=== PATIENT | male | born 1965 | race Caucasian/White ===

== ENCOUNTER 2018-03-17 17:28 | Emergency (ER) | payer OTHER ==
[~2018-03-17] VITALS: Ht 185.4 cm; Wt 76.2 kg
[~2018-03-17 17:28] MED LIST: ANCEF; CEPH500 PO; HYDACE5 PO; IBUHYD; SULTRIDS PO
[2018-03-17] MEDS ORDERED: PRED20 PO (19:11)
[2018-03-17] MEDS ORDERED: ALBU90OI INH (19:11)
[2018-03-17] MEDS ORDERED: PSEU120ER PO (19:11)
[2018-03-17] MEDS ORDERED: Zithromax250 MG PO (19:11)
== END 2018-03-17 19:18 | disposition home or self-care (01) ==
LOC: ER 17:28
DX: J44.1 Chronic obstructive pulmonary disease with (acute) exacerbation (principal); F17.200 Nicotine dependence, unspecified, uncomplicated
CPT/HCPCS: 71046; 94640; 99285-25

== ENCOUNTER 2020-05-27 21:05 | Emergency (ER) | payer OTHER ==
[~2020-05-27] VITALS: Ht 185.4 cm; Wt 74.4 kg
[~2020-05-27 21:05] MED LIST changes: +ALBU90OI INH; +PRED20 PO; +PSEU120ER PO; +Zithromax250 MG PO
[2020-05-27] MEDS ORDERED: TIOT18 INH (21:14)
[2020-05-27] MEDS ORDERED: FLUT.05NI (21:14)
[2020-05-27] MEDS ORDERED: NEO (21:14)
[2020-05-27] MEDS ORDERED: [UNRECOGNIZED DRUG - OTHER] (21:14)
[2020-05-27] MEDS ORDERED: POLY (21:14)
[2020-05-27] MEDS ORDERED: CEPH500 PO (22:10)
== END 2020-05-27 22:30 | disposition home or self-care (01) ==
LOC: ER 21:05
DX: L02.413 Cutaneous abscess of right upper limb (principal); L03.113 Cellulitis of right upper limb; J44.9 Chronic obstructive pulmonary disease, unspecified; F17.200 Nicotine dependence, unspecified, uncomplicated; Z79.899 Other long term (current) drug therapy
CPT/HCPCS: 99283; A9270

== ENCOUNTER 2020-06-18 13:19 | Day surgery (SDC) | payer OTHER ==
[~2020-06-18] VITALS: Ht 185.4 cm; Wt 75.7 kg
[~2020-06-18 13:19] MED LIST changes: +FLUT.05NI; +NEO; +POLY; +TIOT18 INH; +[UNRECOGNIZED DRUG - OTHER]
[2020-06-18] MEDS ORDERED: ASPI81CH PO (13:33)
== END 2020-06-18 15:17 | disposition home or self-care (01) ==
LOC: ORSCSDS 13:19
PROVIDERS: Internal Medicine Gastroenterology
PROC: 0DBN8ZX Excision of Sigmoid Colon, Via Natural or Artificial Opening Endoscopic, Diagnostic (ICD-10-PCS; principal; 2020-06-18 14:30)
DX: Z12.11 Encounter for screening for malignant neoplasm of colon (principal); Z86.010 Personal history of colon polyps; D12.5 Benign neoplasm of sigmoid colon; B19.20 Unspecified viral hepatitis C without hepatic coma; F17.210 Nicotine dependence, cigarettes, uncomplicated; Z79.899 Other long term (current) drug therapy
CPT/HCPCS: 88305; J2704; J7120

== ENCOUNTER 2021-01-29 14:09 | Emergency (ER) | payer OTHER ==
[~2021-01-29] VITALS: Ht 185.4 cm; Wt 74.8 kg
[~2021-01-29 14:09] MED LIST changes: +ASPI81CH PO
[2021-01-29 15:22] LABS: BASOPHILS ABSOLUTE AUTO 0.01 K/mm3 (0.00-0.23); BASOPHILS PERCENT AUTO 0 % (0-2); EOSINOPHILS PERCENT AUTO 0 % (0-6); Hematocrit 44.1 % (37.0-53.0); Hemoglobin 15.6 g/dL (13.5-17.5); IMMATURE GRAN ABSOLUTE AUTO 0.03 K/mm3 (0.00-0.10); IMMATURE GRAN PERCENT AUTO 1 % (0-1); LYMPHOCYTES ABSOLUTE AUTO 0.69 K/mm3 (0.84-5.20); LYMPHOCYTES PERCENT AUTO 12 % (21-46); MONOCYTES ABSOLUTE AUTO 0.33 K/mm3 (0.16-1.47); MONOCYTES PERCENT AUTO 6 % (4-13); Mean Corpuscular HGB 30.6 pg (26.0-34.0); Mean Corpuscular HGB Conc 35.4 g/dL (31.5-36.5); Mean Corpuscular Volume 87 fL (80-100); Mean Platelet Volume 10.5 fL (9.1-12.4); NEUTROPHILS ABSOLUTE AUTO 4.54 K/mm3 (1.96-9.15); NEUTROPHILS PERCENT AUTO 81 % (41-73); Platelet Count 224 K/mm3 (150-400); RDW Coefficient Variation 12.5 % (11.7-14.2); RDW Standard Deviation 39.7 fL (35.1-46.3); Red Blood Cell Count 5.09 M/mm3 (4.30-5.90)
[2021-01-29 15:33] LABS: Alanine Aminotransfer (ALT/SGP 27 U/L (12-78); Albumin/Globulin Ratio 0.7 (0.8-1.8); Alk Phos 56 U/L (50-136); Anion Gap 5 mmol/L (6-16); Aspartate Aminotrans (AST/SGOT 34 U/L (12-37); Bilirubin, Total 0.5 mg/dL (0.1-1.0); Blood Urea Nitrogen 18 mg/dL (8-24); Bun/Creatinine Ratio 21.5 (12.0-20.0); CO2, Blood 27 mmol/L (21-32); Calcium, Blood 8.6 mg/dL (8.5-10.1); Chloride, Blood 98 mmol/L (98-108); Creatinine, Blood 0.84 mg/dL (0.60-1.20); Globulin, Blood 4.3 g/dL (2.2-4.0); Glomerular Filtration Rate >60 (60-); Glucose, Blood 105 mg/dL (70-99); Potassium, Blood 4.1 mmol/L (3.5-5.5); Sodium, Blood 130 mmol/L (136-145); Total Protein, Blood 7.3 g/dL (6.4-8.2); Troponin I <0.015 ng/mL (0.000-0.040)
[2021-01-29 20:23] LABS: SARS-Cov-2 (COVID-19) PCR, MMC POSITIVE (NEGATIVE)
== END 2021-01-30 00:34 | disposition home or self-care (01) ==
LOC: ER 14:09
PROVIDERS: Emergency Medicine
DX: U07.1 COVID-19 (principal); J44.9 Chronic obstructive pulmonary disease, unspecified; E86.0 Dehydration; F17.200 Nicotine dependence, unspecified, uncomplicated
CPT/HCPCS: 36415; 71045; 80053; 83880; 84484; 85025; 93005; 93010; 94640; 99284-25; A9270; J7030; M0243; Q0243; U0004

== ENCOUNTER 2021-09-12 17:49 | Inpatient (IN) | payer OTHER ==
[~2021-09-12] VITALS: Ht 185.4 cm; Wt 68.1 kg
[2021-09-12 18:22] LABS: BASOPHILS ABSOLUTE AUTO 0.12 K/mm3 (0.00-0.23); BASOPHILS PERCENT AUTO 1 % (0-2); EOSINOPHILS PERCENT AUTO 0 % (0-6); Hematocrit 42.9 % (37.0-53.0); IMMATURE GRAN PERCENT AUTO 3 % (0-1); LYMPHOCYTES ABSOLUTE AUTO 0.54 K/mm3 (0.84-5.20); LYMPHOCYTES PERCENT AUTO 2 % (21-46); MONOCYTES ABSOLUTE AUTO 1.49 K/mm3 (0.16-1.47); MONOCYTES PERCENT AUTO 6 % (4-13); Mean Corpuscular HGB 30.2 pg (26.0-34.0); Mean Corpuscular Volume 87 fL (80-100); Mean Platelet Volume 9.5 fL (9.1-12.4); NEUTROPHILS ABSOLUTE AUTO 23.12 K/mm3 (1.96-9.15); NEUTROPHILS PERCENT AUTO 89 % (41-73); Platelet Count 488 K/mm3 (150-400); RDW Coefficient Variation 12.4 % (11.7-14.2); RDW Standard Deviation 39.5 fL (35.1-46.3); Red Blood Cell Count 4.96 M/mm3 (4.30-5.90); White Blood Cell Count 26.07 K/mm3 (4.00-11.30)
[2021-09-12 19:30] LABS: Influenza A, PCR NEGATIVE (NEGATIVE); Influenza B, PCR NEGATIVE (NEGATIVE); Resp Syncytial Virus, PCR NEGATIVE (NEGATIVE); SARS-Cov-2 (COVID-19) PCR, MMC NEGATIVE (NEGATIVE)
[2021-09-12 20:01] LABS: Albumin/Globulin Ratio 0.6 (0.8-1.8); Bun/Creatinine Ratio 23.7 (12.0-20.0); Calcium, Blood 7.9 mg/dL (8.5-10.1); Creatinine, Blood 0.89 mg/dL (0.60-1.20); Globulin, Blood 3.6 g/dL (2.2-4.0); Potassium, Blood 4.3 mmol/L (3.5-5.5); Total Protein, Blood 5.6 g/dL (6.4-8.2)
[2021-09-12] MEDS ORDERED: Advair Diskus 250-50 INH (22:52)
--- NOTE | 2021-09-12 23:00 | NUR ---
CARE ASUMPTION PT ARRIVED TO THE UNIT AND TRANSFERED HIMSELF FROM ER BED TO PCU BED. VS WNL AND AFEBRILE. TELE SHOWING ST IN THE 100'S. PT HAVING HACKING PRODUCTIVE COUGH, SPUTUM SAMPLE SENT TO LAB. PT HAD COUGHING FIT THAT CAUSED O2 SATS TO DROP INTO THE 70'S SO OXYMIZER W 15L PLACED ON AND RT CONTACTED. PT'S O2 SATS >90% ON OXYMIZER. PT IN NO DISTRESS AT THIS TIME.
--- NOTE | 2021-09-13 01:21 | NUR ---
UPDATE PT BECOMING ORE SOB W INCREASING O2 REQUIRMENTS TO MAINTAIN SATS >90%. PT CONTINUES TO HAVE TACHYPNEA W VERY PRODUCTIVE COUGH, HR IS STABLE IN THE 90'S. PROVIDER CONTACTED TO UPDATE AND NEW ORDERS GIVEN. SEE EMAR FOR DETAILS.
[2021-09-13 04:12] LABS: Hematocrit 43.4 % (37.0-53.0); Hemoglobin 14.8 g/dL (13.5-17.5); Mean Corpuscular HGB 30.2 pg (26.0-34.0); Mean Corpuscular HGB Conc 34.1 g/dL (31.5-36.5); Mean Corpuscular Volume 89 fL (80-100); Mean Platelet Volume 9.4 fL (9.1-12.4); Platelet Count 470 K/mm3 (150-400); RDW Coefficient Variation 12.5 % (11.7-14.2); RDW Standard Deviation 41.1 fL (35.1-46.3); White Blood Cell Count 24.11 K/mm3 (4.00-11.30)
[2021-09-13 04:39] LABS: Bun/Creatinine Ratio 34.4 (12.0-20.0); Calcium, Blood 8.1 mg/dL (8.5-10.1); Creatinine, Blood 0.7 mg/dL (0.60-1.20)
--- NOTE | 2021-09-13 04:47 | NUR ---
UPDATE PT TRIPODDING IN THE BED W VERY LABORED RESP ON BIPAP /6 W 70% FIO2. O2 SATS AT 92%. R/T DRAWING ABG NOW.
[2021-09-13 04:48] LABS: PCO2 Arterial 59.4 mmHg (35-45); PO2 Arterial 77.6 mmHg (80-100); pH Blood Arterial 7.18 (7.35-7.45)
[2021-09-13 06:26] LABS: Source, Urine Foley catheter
[2021-09-13 06:35] LABS: Appearance, Urine Clear (Clear); Blood, Urine 2+ (Neg); Color, Urine Yellow (P-Yellow); Glucose Qualitative, Urine Neg (Neg); Ketones, Urine 1+ (Neg); Leukocyte Esterase, Urine 1+ (Neg); Nitrite, Urine Neg (Neg); Protein, Urine 2+ (Neg); Urobilinogen, Urine 4+ (Normal)
--- NOTE | 2021-09-13 06:45 | NUR ---
0455 PT TRANSFERRED TO ICU FROM PCU FOR INCREASING DYSPNEA AND OXYGEN REQUIREMENTS, PT IS NOTED WITH MARKEDLY ELEVATED RESP RATE HIGH 30S TO 40S WITH BIPAP IN USE 12/6 FIO2 70% AND SATS 90% LUNGS DIM THROUGHOUT LEFT, COARSE THROUGHOUT RIGHT, PLAN IS FOR DR RODRIGUEZ TO ARRIVE TO BEDSIDE FOR POSSIBLE INTUBATION. PT APPEARS TO BE TIRING PER RT AND PRIMARY RN. 0510: DR RODRIGUEZ ARRIVES TO BEDSIDE 0515: PT TO BE INTUBATED, VERBAL ORDERS FOR ETOMIDATE 10 MG IV, SUCCINYLCHOLINE 100 MG, AND VERSED 2 MG IV TO HAVE AVAILABLE PRN 0517: ETOMIDATE IV ADMIN 0518: SUCCINYLCHOLINE ADMIN, BVM WITH OXYGEN BY RT 0520: ETT 8.0 [address] PL[address]ED BY DR RODRIGUEZ USING GLIDESCOPE 0523: OG PLACED, AIR AUSCULTATED OVER LUQ WITH FLUSH 0528: PROPOFOL STARTED INFUSING AT 30 MCG/KG/MIN FOR 68 KG (ADMIT WEIGHT FROM PCU) 0535: PT SITTING UP AWAY FROM BED, COUGHING AGAINST VENT, PROPOFOL INCREASED TO 50 MCG/KG/MIN 0540: X RAY FOR TUBE PLACEMENT VERIFICATION, PT TOLERATED WELL 0544: VERBAL ORDER TO ADVANCE ETT 1 CM RECEIVED. 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 0616: TEMP PROBE OROSCO PLACED USING STERILE TECHNIQUE, UA OBTAINED, PT REMAINED SEDATE THROUGH PROCEDURE 0625: RESPIRATORY RATE NOTED 35/MIN, PROPOFOL INCREASED TO 60 MCG/KG/MIN WILL MONITOR.
[2021-09-13 06:48] LABS: Bilirubin, Urine 2+ (Neg)
[2021-09-13 06:49] LABS: Bacteria Rare /hpf; Squamous Epithelial Cells Few /hpf (Few); White Blood Cells, Urine 0-2 /hpf (0-5)
[2021-09-13 06:50] LABS: Spermatozoa Few /hpf
--- NOTE | 2021-09-13 07:10 | NUR ---
Received report from Albina RUBY. Patient is intubated and sedated with 8.0 ET and 26 cm at teeth with vent settings of 22/550/100/10 and sats 94%. Patient has x2 20ga IV's in LAC and infusing Propofol at 60 mcg/kg/min and NS at 75 ml/hr x 1 more liter. He has 16Fr temp garcia draining to gravity dark maximus colored urine in scant amounts, and temp 99.0. Over all skin in good condition.He is in bilateral soft wrist restraints for line and tube protection, restraints removed and skin and circulation check and reapplied.
[2021-09-13 08:03] LABS: PO2 Arterial 87.6 mmHg (80-100)
[2021-09-13 08:05] LABS: PCO2 Arterial 77 mmHg (35-45)
--- NOTE | 2021-09-13 09:30 | NUR ---
Patients sats dropped and we were unable to get good reading and had RT do ABG. Called Dr Martell and he is on his way in. Increased vent settings to 26/550/100/10 and sats have dropped to 60s and ABG stated 91. Placed PICC line in BRIGETTE. Infused 3 different 250 ml NS boluses and systolic now in the 80. Started Levophed and then vasopressin, pressures remainsing in the 70-80's. patient ST 109.
--- NOTE | 2021-09-13 10:35 | NUR ---
Pt resting in bed, intubated and sedated. Spoke with Primary RN Jai and discussed case. Family lives in [place]. Family has made Pt DNR. Pt imminent and appears comfortable. Pt passes away peacefully.
--- NOTE | 2021-09-13 10:57 | NUR ---
Dr Martell called family and changed to DNR. Epi gtt started and increased to 10 mcg/min, Levophed to 30 mcg/min. Patient having EKG changes and slowing, EtCo2 slowly decreaing and went to <8 and patient elie down and passed at 1023. Tried to call family and went to answering service and then they called back
== END 2021-09-13 10:23 | DRG 871 ==
LOC: ER 17:49 → ICUW 21:36 → PCU 21:36 → ICUW 09-13 04:55
PROVIDERS: Internal Medicine; Student in an Organized Health Care Education/Training Program; ADMIT Internal Medicine
PROC: 3E03329 Introduction of Other Anti-infective into Peripheral Vein, Percutaneous Approach (ICD-10-PCS; 2021-09-12)
PROC: 0BH17EZ Insertion of Endotracheal Airway into Trachea, Via Natural or Artificial Opening (ICD-10-PCS; principal; 2021-09-13)
PROC: 3E033XZ Introduction of Vasopressor into Peripheral Vein, Percutaneous Approach (ICD-10-PCS; 2021-09-13)
PROC: 5A1935Z Respiratory Ventilation, Less than 24 Consecutive Hours (ICD-10-PCS; 2021-09-13)
DX: A41.9 Sepsis, unspecified organism (principal); J18.9 Pneumonia, unspecified organism; J96.21 Acute and chronic respiratory failure with hypoxia; I47.1 Supraventricular tachycardia; E87.1 Hypo-osmolality and hyponatremia; R57.0 Cardiogenic shock; Z20.822 Contact with and (suspected) exposure to COVID-19; Z66 Do not resuscitate; Z51.5 Encounter for palliative care; R65.20 Severe sepsis without septic shock; Z78.1 Physical restraint status; G47.00 Insomnia, unspecified; J43.9 Emphysema, unspecified; B18.2 Chronic viral hepatitis C; Z86.14 Personal history of Methicillin resistant Staphylococcus aureus infection; Z99.81 Dependence on supplemental oxygen; Z79.51 Long term (current) use of inhaled steroids; Z79.82 Long term (current) use of aspirin; Z79.899 Other long term (current) drug therapy; F17.210 Nicotine dependence, cigarettes, uncomplicated
CPT/HCPCS: 0241U; 31500; 36415; 36569; 36600; 51702; 71045; 80048; 80053; 81001; 82803; 83605; 83735; 83880; 85025; 85027; 87040; 87070; 87086; 87147; 87205; 93005; 93010; 94002; 94640; 94660; 94664; 94762; 96361; 96365; 96375; 99285-25; A9270; C1751; C1769; C1894; J0153; J0171; J0456; J0696; J2060; J2704; J3010; J7030; J7050; J7060